=== PATIENT | male | born 1955 | race Caucasian/White ===

== ENCOUNTER → 2024-10-22 15:26 | Outpatient (REF) | payer MEDICARE, BC, SELFPAY | LOC: HWRAD 15:26 | PROVIDERS: ATTENDING PHYSICIAN Student in an Organized Health Care Education/Training Program; FAMILY PHYSICIAN Family Medicine | DX: Z01.818 Encounter for other preprocedural examination (principal); I44.0 Atrioventricular block, first degree; I36.1 Nonrheumatic tricuspid (valve) insufficiency; I25.5 Ischemic cardiomyopathy; Z95.1 Presence of aortocoronary bypass graft; Z95.810 Presence of automatic (implantable) cardiac defibrillator; E04.9 Nontoxic goiter, unspecified | CPT/HCPCS: 76536 ==

== ENCOUNTER → 2025-05-11 15:18 | Outpatient (REF) | payer MEDICARE, BC, SELFPAY | LOC: HWRAD 15:18 | PROVIDERS: ATTENDING PHYSICIAN Radiology Diagnostic Radiology; FAMILY PHYSICIAN Family Medicine; REFERRING PHYSICIAN Internal Medicine Cardiovascular Disease | DX: Z95.810 Presence of automatic (implantable) cardiac defibrillator (principal) | CPT/HCPCS: 71046 ==

== ENCOUNTER → 2025-05-30 13:24 | Outpatient (REF) | payer MEDICARE, BC, SELFPAY | LOC: MRI 13:24 | PROVIDERS: ATTENDING PHYSICIAN Student in an Organized Health Care Education/Training Program | DX: M54.59 Other low back pain (principal); M47.816 Spondylosis without myelopathy or radiculopathy, lumbar region; M54.89 Other dorsalgia | CPT/HCPCS: 72148 ==